=== PATIENT | female | born 1990 | race Caucasian/White ===

== ENCOUNTER 2017-11-13 10:50 | Emergency (ER) | payer OTHER ==
[~2017-11-13] VITALS: Ht 167.6 cm; Wt 105.6 kg
[2017-11-13] MEDS ORDERED: IBUP400 PO (12:13)
== END 2017-11-13 12:21 | disposition home or self-care (01) ==
LOC: ER 10:50
DX: J02.9 Acute pharyngitis, unspecified (principal); F17.200 Nicotine dependence, unspecified, uncomplicated
CPT/HCPCS: 86308; 87081; 87430; 99282

== ENCOUNTER 2019-01-17 13:17 | Emergency (ER) | payer OTHER ==
[~2019-01-17] VITALS: Ht 162.6 cm; Wt 108.9 kg
[~2019-01-17 13:17] MED LIST: IBUP400 PO
[2019-01-17] MEDS ORDERED: IBUP800 PO (14:22)
== END 2019-01-17 14:38 | disposition home or self-care (01) ==
LOC: ER 13:17
DX: M25.561 Pain in right knee (principal); J45.909 Unspecified asthma, uncomplicated; F17.200 Nicotine dependence, unspecified, uncomplicated
CPT/HCPCS: 73562-RT; 99283-25

== ENCOUNTER 2019-07-03 11:02 | Emergency (ER) | payer OTHER ==
[~2019-07-03] VITALS: Ht 162.6 cm; Wt 99.8 kg
[~2019-07-03 11:02] MED LIST changes: +IBUP800 PO
[2019-07-03 12:00] LABS: BASOPHILS ABSOLUTE AUTO 0.07 K/mm3 (0.00-0.23); BASOPHILS PERCENT AUTO 0 % (0-2); EOSINOPHILS ABSOLUTE AUTO 0.02 K/mm3 (0.00-0.68); EOSINOPHILS PERCENT AUTO 0 % (0-6); Hematocrit 41.2 % (33.0-51.0); Hemoglobin 13.6 g/dL (11.5-16.0); IMMATURE GRAN ABSOLUTE AUTO 0.14 K/mm3 (0.00-0.10); IMMATURE GRAN PERCENT AUTO 1 % (0-1); LYMPHOCYTES ABSOLUTE AUTO 1.31 K/mm3 (0.84-5.20); LYMPHOCYTES PERCENT AUTO 7 % (21-46); MONOCYTES ABSOLUTE AUTO 0.78 K/mm3 (0.16-1.47); MONOCYTES PERCENT AUTO 4 % (4-13); Mean Corpuscular HGB 30.2 pg (26.0-34.0); Mean Corpuscular Volume 92 fL (80-100); Mean Platelet Volume 9.2 fL (9.1-12.4); NEUTROPHILS ABSOLUTE AUTO 15.56 K/mm3 (1.96-9.15); NEUTROPHILS PERCENT AUTO 87 % (41-73); Platelet Count 260 K/mm3 (150-400); RDW Coefficient Variation 13.8 % (11.7-14.2); RDW Standard Deviation 47.2 fL (35.1-46.3); White Blood Cell Count 17.88 K/mm3 (4.00-11.30)
[2019-07-03 12:24] LABS: Anion Gap 4 mmol/L (6-16); Blood Urea Nitrogen 11 mg/dL (8-24); Bun/Creatinine Ratio 11.1 (12.0-20.0); CO2, Blood 29 mmol/L (21-32); Calcium, Blood 8.4 mg/dL (8.5-10.1); Chloride, Blood 105 mmol/L (98-108); Creatinine, Blood 0.99 mg/dL (0.40-1.00); Glomerular Filtration Rate >60 (60-); Glucose, Blood 77 mg/dL (70-99); Potassium, Blood 3.7 mmol/L (3.5-5.5); Sodium, Blood 138 mmol/L (136-145)
[2019-07-03] MEDS ORDERED: ALBU90OI INH (12:56)
[2019-07-03] MEDS ORDERED: Mucinex600 MG PO (12:56)
== END 2019-07-03 13:22 | disposition home or self-care (01) ==
LOC: ER 11:02
PROVIDERS: Physician Assistant
DX: J11.1 Influenza due to unidentified influenza virus with other respiratory manifestations (principal); J45.909 Unspecified asthma, uncomplicated; Z91.048 Other nonmedicinal substance allergy status; F17.200 Nicotine dependence, unspecified, uncomplicated
CPT/HCPCS: 71045; 80048; 85025; 99283-25

== ENCOUNTER → 2020-07-17 | Outpatient (CLI) | payer OTHER ==
[~2020-07-17] MED LIST changes: +ALBU90OI INH; +Mucinex600 MG PO
[2020-07-17 17:50] LABS: Free Thyroxine 0.97 ng/dL (0.70-1.60); Thyroid Stimulating Hormone 7.5 uIU/mL (0.360-4.800)
[2020-07-22 12:10] LABS: HPV 16 Negative (Negative); HPV 18 Negative (Negative); HPV OTHER HR TYPES Negative (Negative)
== END ==
LOC: LAB SHORT 14:49
PROVIDERS: Family Medicine; Nurse Practitioner Family
DX: Z01.419 Encounter for gynecological examination (general) (routine) without abnormal findings (principal); E03.9 Hypothyroidism, unspecified; R63.5 Abnormal weight gain
CPT/HCPCS: 36415; 84146; 84439; 84443; 87624; G0123

== ENCOUNTER → 2020-11-13 | Outpatient (CLI) | payer OTHER | END | disposition home or self-care (01) | LOC: LAB 13:48 → LAB SHORT 13:48 | DX: J02.9 Acute pharyngitis, unspecified (principal) | CPT/HCPCS: 87081 ==

== ENCOUNTER 2022-06-22 23:27 | Emergency (ER) | payer OTHER ==
[~2022-06-22] VITALS: Ht 167.6 cm; Wt 140.1 kg
[~2022-06-22 23:27] MED LIST changes: +PRED20 PO
[2022-06-23 00:53] LABS: Influenza A, PCR NEGATIVE (NEGATIVE); Influenza B, PCR NEGATIVE (NEGATIVE); Resp Syncytial Virus, PCR NEGATIVE (NEGATIVE); SARS-Cov-2 (COVID-19) PCR, MMC NEGATIVE (NEGATIVE)
[2022-06-23] MEDS ORDERED: AMOCLA875 PO (04:17)
[2022-06-24] MEDS ORDERED: [UNRECOGNIZED DRUG - CODE] PO (03:04)
[2022-06-24] MEDS ORDERED: EUTHYROX200 MC1 (03:04)
[2022-06-24] MEDS ORDERED: TRAZ100 PO (03:04)
[2022-06-24] MEDS ORDERED: BUSPIRONE HCL7.5 M6 PO (03:04)
[2022-06-24] MEDS ORDERED: PALIPERIDONE ER6 MG PO (03:04)
[2022-06-24] MEDS ORDERED: BUPROPION XL150 M1 PO (03:04)
[2022-06-24] MEDS ORDERED: TOPI100 (03:04)
[2022-06-24] MEDS ORDERED: PROMETHAZINE-C473 ML PO (04:07)
[2022-06-24] MEDS ORDERED: Mucinex600 MG PO (04:07)
[2022-06-24] MEDS ORDERED: CODEINE-GUAIFE120 M1 PO ×3 (09:01→14:19)
== END 2022-06-23 04:41 | disposition home or self-care (01) ==
LOC: ER 23:27
PROVIDERS: Physician Assistant
DX: J02.9 Acute pharyngitis, unspecified (principal); R59.1 Generalized enlarged lymph nodes; J45.909 Unspecified asthma, uncomplicated; F17.200 Nicotine dependence, unspecified, uncomplicated; Z79.52 Long term (current) use of systemic steroids; Z79.899 Other long term (current) drug therapy; Z91.09 Other allergy status, other than to drugs and biological substances; Z20.822 Contact with and (suspected) exposure to COVID-19
CPT/HCPCS: 0241U; 87081; 87430; A9270; J1100; J1885

== ENCOUNTER 2022-06-24 02:51 | Emergency (ER) | payer OTHER ==
[~2022-06-24] VITALS: Ht 167.6 cm; Wt 138.3 kg
[~2022-06-24 02:51] MED LIST changes: +AMOCLA875 PO
[2022-06-24] MEDS ORDERED: BUSPIRONE HCL7.5 M6 PO (03:04)
[2022-06-24] MEDS ORDERED: BUPROPION XL150 M1 PO (03:04)
[2022-06-24] MEDS ORDERED: PALIPERIDONE ER6 MG PO (03:04)
[2022-06-24] MEDS ORDERED: TOPI100 (03:04)
[2022-06-24] MEDS ORDERED: TRAZ100 PO (03:04)
[2022-06-24] MEDS ORDERED: [UNRECOGNIZED DRUG - CODE] PO (03:04)
[2022-06-24] MEDS ORDERED: EUTHYROX200 MC1 (03:04)
[2022-06-24] MEDS ORDERED: Mucinex600 MG PO (04:07)
[2022-06-24] MEDS ORDERED: PROMETHAZINE-C473 ML PO (04:07)
[2022-06-24] MEDS ORDERED: CODEINE-GUAIFE120 M1 PO ×3 (09:01→14:19)
== END 2022-06-24 04:11 | disposition home or self-care (01) ==
LOC: ER 02:51
DX: R05.9 Cough, unspecified (principal); R06.02 Shortness of breath; J45.909 Unspecified asthma, uncomplicated; E03.9 Hypothyroidism, unspecified; F17.210 Nicotine dependence, cigarettes, uncomplicated; Z91.018 Allergy to other foods; Z79.899 Other long term (current) drug therapy
CPT/HCPCS: 94640; 94664; A9270

== ENCOUNTER 2024-01-29 02:06 | Emergency (ER) | payer OTHER ==
[~2024-01-29] VITALS: Ht 162.6 cm; Wt 138.3 kg
[~2024-01-29 02:06] MED LIST changes: +ALBU2.5V5 INH; +BUPROPION XL150 M1 PO; +BUSPIRONE HCL7.5 M6 PO; +CODEINE-GUAIFE120 M1 PO; +EUTHYROX200 MC1; +PALIPERIDONE ER6 MG PO; +PROMETHAZINE-C473 ML PO; +TOPI100; +TRAZ100 PO; +Tessalon Perle100 MG PO; +[UNRECOGNIZED DRUG - CODE] PO
[2024-01-29] MEDS ORDERED: [UNRECOGNIZED DRUG - OTHER] (02:24)
[2024-01-29] MEDS ORDERED: Buspirone HCl15 MG PO (02:33)
[2024-01-29] MEDS ORDERED: PALIPERIDONE ER9 MG PO (02:34)
[2024-01-29] MEDS ORDERED: BUTALB-ACETAMI1 EAC5 PO (02:34)
[2024-01-29] MEDS ORDERED: TIZANIDINE HCL213 PO (02:35)
[2024-01-29] MEDS ORDERED: RIZATRIPTAN1014 PO (02:35)
[2024-01-29] MEDS ORDERED: Acetaminophen 325 MG TABLET PO ONE (02:45)
[2024-01-29] MEDS ORDERED: Diazepam 5 MG / ML 2ML SYR IV ONE (02:45)
[2024-01-29 02:56] LABS: BASOPHILS ABSOLUTE AUTO 0.02 K/mm3 (0.00-0.23); BASOPHILS PERCENT AUTO 0 % (0-2); EOSINOPHILS ABSOLUTE AUTO 0.16 K/mm3 (0.00-0.68); EOSINOPHILS PERCENT AUTO 1 % (0-6); Hematocrit 40.6 % (33.0-51.0); Hemoglobin 13.9 g/dL (11.5-16.0); IMMATURE GRAN ABSOLUTE AUTO 0.05 K/mm3 (0.00-0.10); IMMATURE GRAN PERCENT AUTO 0 % (0-1); LYMPHOCYTES ABSOLUTE AUTO 1.64 K/mm3 (0.84-5.20); LYMPHOCYTES PERCENT AUTO 13 % (21-46); MONOCYTES ABSOLUTE AUTO 0.66 K/mm3 (0.16-1.47); MONOCYTES PERCENT AUTO 5 % (4-13); Mean Corpuscular HGB 30.7 pg (26.0-34.0); Mean Corpuscular HGB Conc 34.2 g/dL (31.5-36.5); Mean Corpuscular Volume 90 fL (80-100); Mean Platelet Volume 9.6 fL (9.1-12.4); NEUTROPHILS ABSOLUTE AUTO 9.93 K/mm3 (1.96-9.15); NEUTROPHILS PERCENT AUTO 80 % (41-73); Platelet Count 255 K/mm3 (150-400); RDW Coefficient Variation 13.1 % (11.7-14.2); RDW Standard Deviation 43.1 fL (35.1-46.3); Red Blood Cell Count 4.53 M/mm3 (3.80-5.20); White Blood Cell Count 12.46 K/mm3 (4.00-11.30)
[2024-01-29 03:13] LABS: Albumin, Blood 3.4 g/dL (3.4-5.0); Albumin/Globulin Ratio 0.9 (0.8-1.8); Bilirubin, Total 0.2 mg/dL (0.1-1.0); Bun/Creatinine Ratio 13.2 (12.0-20.0); Calcium, Blood 9.4 mg/dL (8.5-10.1); Creatinine, Blood 1.06 mg/dL (0.40-1.00); Globulin, Blood 3.7 g/dL (2.2-4.0); Magnesium, Blood 1.7 mg/dL (1.6-2.4); Potassium, Blood 4.2 mmol/L (3.5-5.5); Total Protein, Blood 7.1 g/dL (6.4-8.2)
[2024-01-29 03:32] LABS: Influenza A, PCR NEGATIVE (NEGATIVE); Influenza B, PCR NEGATIVE (NEGATIVE); Resp Syncytial Virus, PCR NEGATIVE (NEGATIVE); SARS-Cov-2 (COVID-19) PCR, MMC NEGATIVE (NEGATIVE)
== END 2024-01-29 03:47 | disposition home or self-care (01) ==
LOC: ER 02:06
PROVIDERS: Student in an Organized Health Care Education/Training Program
DX: R53.81 Other malaise (principal); H01.004 Unspecified blepharitis left upper eyelid; R51.9 Headache, unspecified; J45.909 Unspecified asthma, uncomplicated; E03.9 Hypothyroidism, unspecified; F17.200 Nicotine dependence, unspecified, uncomplicated; Z91.018 Allergy to other foods; Z79.899 Other long term (current) drug therapy; Z79.890 Hormone replacement therapy
CPT/HCPCS: 0241U; 80053; 83735; 85025; 96374; 99284-25; A9270; J3360

== ENCOUNTER 2025-01-01 00:35 | Emergency (ER) | payer OTHER ==
[~2025-01-01] VITALS: Ht 170.2 cm; Wt 155.6 kg
[~2025-01-01 00:35] MED LIST changes: +BUTALB-ACETAMI1 EAC5 PO; +Buspirone HCl15 MG PO; +PALIPERIDONE ER9 MG PO; +RIZATRIPTAN1014 PO; +TIZANIDINE HCL213 PO; +[UNRECOGNIZED DRUG - OTHER]
[2025-01-01 01:03] VITALS: BP 168/103
[2025-01-01 02:28] LABS: BASOPHILS ABSOLUTE AUTO 0.05 K/mm3 (0.00-0.23); BASOPHILS PERCENT AUTO 1 % (0-2); EOSINOPHILS ABSOLUTE AUTO 0.20 K/mm3 (0.00-0.68); EOSINOPHILS PERCENT AUTO 2 % (0-6); Hematocrit 38.5 % (33.0-51.0); Hemoglobin 12.7 g/dL (11.5-16.0); IMMATURE GRAN ABSOLUTE AUTO 0.08 K/mm3 (0.00-0.10); IMMATURE GRAN PERCENT AUTO 1 % (0-1); LYMPHOCYTES ABSOLUTE AUTO 2.80 K/mm3 (0.84-5.20); LYMPHOCYTES PERCENT AUTO 26 % (21-46); MONOCYTES ABSOLUTE AUTO 0.74 K/mm3 (0.16-1.47); MONOCYTES PERCENT AUTO 7 % (4-13); Mean Corpuscular HGB Conc 33.0 g/dL (31.5-36.5); Mean Corpuscular Volume 82 fL (80-100); NEUTROPHILS ABSOLUTE AUTO 7.04 K/mm3 (1.96-9.15); NEUTROPHILS PERCENT AUTO 65 % (41-73); NRBC ABSOLUTE 0.00 K/mm3 (0.00-0.02); NRBC Auto 0.0 /100 WBC (0.0-0.2); Platelet Count 274 K/mm3 (150-400); RDW Coefficient Variation 14.7 % (11.7-14.2); RDW Standard Deviation 44.5 fL (35.1-46.3)
[2025-01-01 02:41] LABS: Alanine Aminotransfer (ALT/SGP 70.0 U/L (12-78); Albumin, Blood 3.4 g/dL (3.4-5.0); Albumin/Globulin Ratio 0.8 (0.8-1.8); Anion Gap 8.0 mmol/L (3-11); Aspartate Aminotrans (AST/SGOT 40.0 U/L (12-37); Bilirubin, Total 0.3 mg/dL (0.1-1.0); Blood Urea Nitrogen 13.0 mg/dL (8-24); CO2, Blood 24.0 mmol/L (21-32); Calcium, Blood 8.6 mg/dL (8.5-10.1); Chloride, Blood 109.0 mmol/L (98-108); Creatinine, Blood 0.85 mg/dL (0.40-1.00); Globulin, Blood 4.0 g/dL (2.2-4.0); Glucose, Blood 118.0 mg/dL (70-99); Potassium, Blood 3.9 mmol/L (3.5-5.5); Sodium, Blood 137.0 mmol/L (136-145); Total Protein, Blood 7.4 g/dL (6.4-8.2)
== END 2025-01-01 05:11 | disposition home or self-care (01) ==
LOC: ER 00:35
PROVIDERS: Emergency Medicine
DX: M79.89 Other specified soft tissue disorders (principal); Z91.048 Other nonmedicinal substance allergy status; Z79.899 Other long term (current) drug therapy; J45.909 Unspecified asthma, uncomplicated; F17.200 Nicotine dependence, unspecified, uncomplicated; R73.9 Hyperglycemia, unspecified
CPT/HCPCS: 80053; 83880; 85025; 93970; 99284-25

== ENCOUNTER 2025-01-04 13:28 | Emergency (ER) | payer OTHER ==
[~2025-01-04] VITALS: Ht 167.6 cm; Wt 155.6 kg
[2025-01-04 14:01] VITALS: BP 131/89
== END 2025-01-04 14:40 | disposition home or self-care (01) ==
LOC: ER 13:28
DX: S73.101A Unspecified sprain of right hip, initial encounter (principal); F17.200 Nicotine dependence, unspecified, uncomplicated; J45.909 Unspecified asthma, uncomplicated; W01.0XXA Fall on same level from slipping, tripping and stumbling without subsequent striking against object, initial encounter; Y92.000 Kitchen of unspecified non-institutional (private) residence as the place of occurrence of the external cause
CPT/HCPCS: 73502; 99283-25